=== PATIENT | male | born 1995 | race Two or more races ===

== ENCOUNTER → 2017-11-22 | Emergency (ER) | payer OTHER ==
[~2017-11-22] VITALS: Ht 182.9 cm; Wt 99.8 kg
[~2017-11-22] MED LIST: BENADRYL25 MG PO; CEFUROXIME500 MG PO; MUPIROCIN22 GM TOP
== END | disposition home or self-care (01) ==
LOC: ER 23:27
DX: R21 Rash and other nonspecific skin eruption (principal)

== ENCOUNTER 2019-03-21 13:50 | Emergency (ER) | payer OTHER ==
[~2019-03-21] VITALS: Ht 180.3 cm; Wt 102.1 kg
[2019-03-21] MEDS ORDERED: NAPROXEN500 MG PO (15:57)
== END 2019-03-21 16:04 | disposition home or self-care (01) ==
LOC: ER 13:50
DX: M26.621 Arthralgia of right temporomandibular joint (principal); R07.0 Pain in throat

== ENCOUNTER 2022-04-11 22:10 | Inpatient (IN) | payer OTHER ==
[~2022-04-11] VITALS: Ht 182.9 cm; Wt 108.9 kg
[~2022-04-11 22:10] MED LIST changes: +NAPROXEN500 MG PO
--- NOTE | 2022-04-11 22:50 | NUR ---
PTE SE RECIBE POR DIARREA FIEBRE DOLOR DE HOLGER Y DOLOR EN EL CUERPO REFIERE PTE.
[2022-04-11] MEDS ORDERED: TYLENOL (22:53)
[2022-04-11] MEDS ORDERED: INMODIUN (22:54)
--- NOTE | 2022-04-12 00:55 | NUR ---
PACIENTE ALERTA Y ORIENTADO X3. MIS. ENGEL ORIENTA A PACIENTE SOBRE TX Y PROCEDIMIENTO A REALIZAR Y REFIRIO ENTENDER. ADMINISTRA MEDICAMENTOS ORDENADOS POR MD. REALIZA MUESTRAS DE LABORATORIO BAJO MEDIDAS ASEPTICAS. PENDIENTE ENTREGA DE MUESTRA DE ESCRETA.
--- NOTE | 2022-04-12 07:12 | NUR ---
SE RECIBE PTE EN EL AREA DE OBSERVACION EN EL CUBICULO #7 EN CAMA CON BARANDAS ELEVADA Y TIMBRE ACCESIBLE PTE ALERTA Y CONCIENTE POR 3 EN COMPANIA DE GALVEZ FAMILIAR SE OBSERVA VENOPUNCION PATENTE Y MENDOZA DE EDEMA PTE NO PRESENTA DOLOR AL MOMENTO, PTE SE MANTIENE EN OBSERVACION Y BAJO TRATAMIENTO EN ESPERA DEL DR DEL REAL.
[2022-04-13] MEDS ORDERED: PANTOPRAZOLE SO40 MG (08:44)
[2022-04-13] MEDS ORDERED: IMODIUM A-D2 MG (08:45)
[2022-04-13] MEDS ORDERED: TYLENOL325 M1 (08:45)
== END 2022-04-20 19:10 | disposition home or self-care (01) | DRG 386 ==
LOC: ER 22:10 → MEDJ 04-12 12:34 → SEC-K 04-12 12:34 → MEDJ 04-13 16:13
PROVIDERS: ADMIT Internal Medicine; ATTEND Internal Medicine
PROC: BW21YZZ Computerized Tomography (CT Scan) of Abdomen and Pelvis using Other Contrast (ICD-10-PCS; principal; 2022-04-12)
DX: K51.00 Ulcerative (chronic) pancolitis without complications (principal); K62.5 Hemorrhage of anus and rectum; E86.0 Dehydration; A06.9 Amebiasis, unspecified; Z20.822 Contact with and (suspected) exposure to COVID-19

== ENCOUNTER 2024-04-17 15:02 | Emergency (ER) | payer OTHER ==
[~2024-04-17] VITALS: Ht 182.9 cm; Wt 103.0 kg
[~2024-04-17 15:02] MED LIST changes: +IMODIUM A-D2 MG; +INMODIUN; +PANTOPRAZOLE SO40 MG; +TYLENOL; +TYLENOL325 M1
[2024-04-17 17:25] LABS: HEMATOCRIT 43.1 % (39.0-48.0); HEMOGLOBIN 14.9 g/dL (13-16.00); MEAN CELL VOLUME 87.8 fL (80.0-100.00); MEAN CORPUSCULAR HEMOGLOBIN 30.4 pg (27.00-32.0); MEAN CORPUSCULAR HGB CONC 34.7 g/dl (32.0-36.0); PLATELET COUNT 283 K/uL (150-450); RED CELL DISTRIBUTION WIDTH 13.8 % (11.5-14.5)
[2024-04-17 18:39] LABS: PH,URINE 6.5 (5.0-8.0); URINE APPEARANCE Clear; URINE BILIRRUBIN Negative (NEGATIVE); URINE BLOOD Negative; URINE COLOR Yellow; URINE GLUCOSE Negative (NEGATIVE); URINE KETONE Negative (NEGATIVE); URINE LEUKOCYTE Negative; URINE NITRATE Negative; URINE PROTEIN Negative (NEGATIVE); URINE UROBILINOGEN 0.2 E.U./dl
[2024-04-17 18:44] LABS: URINE BACTERIA 1.2 uL (0.0-1933); URINE RBC 0.1 uL (0.0-20.8); URINE WBC 0 uL (0.0-23.2)
== END 2024-04-17 23:30 | disposition home or self-care (01) ==
LOC: ER 15:04
PROVIDERS: Preventive Medicine Public Health & General Preventive Medicine
DX: K59.00 Constipation, unspecified (principal); Z91.013 Allergy to seafood